=== PATIENT | female | born 2000 | race Two or more races ===

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

== ENCOUNTER 2020-06-09 09:29 | Emergency (ER) | payer BC, MEDICAID ==
[2020-06-09] MEDS ORDERED: ONDANSETRON HCL INJ/PF 4 MG/2 ML SDV IV ONE (10:19)
[2020-06-09] MEDS ORDERED: RINGERS SOLUTION,LACTATED 1,000 ML IV ONE (10:19)
--- NOTE | 2020-06-09 10:20 | ER Document Report ---
ED GI/ - General Chief Complaint: Abdominal Pain Stated Complaint: ABDOMINAL PAIN Time Seen by Provider: 06/09/20 10:04 Mode of Arrival: Ambulatory Information source: Patient Notes: 19-year-old female who states she is approximately 7 weeks presents to the emergency room complaining of nausea with vomiting abdominal pain that started last night. States she is been unable to keep anything down today. Has tried taking crackers and Sprite without relief. She is a 1. States she saw her OB last week had a normal ultrasound. She denies any fevers. No urinary symptoms. Denies any vaginal discharge. Denies any vaginal bleeding. Describes the pain as cramping in her lower abdomen. TRAVEL OUTSIDE OF THE [place] IN LAST 30 DAYS: No - Related Data Allergies/Adverse Reactions: No Known Allergies Allergy (Verified 05/03/19 07:27) Past Medical History - General Information source: Patient - Social History Smoking Status: Never Smoker Chew tobacco use (# tins/day): No Frequency of alcohol use: None Drug Abuse: None Family History: Reviewed & Not Pertinent Renal/ Medical History: Denies: Hx Peritoneal Dialysis - Immunizations Immunizations up to date: Yes Review of Systems - Review of Systems Constitutional: No symptoms reported Cardiovascular: No symptoms reported Respiratory: No symptoms reported Gastrointestinal: Abdominal pain, Nausea, Vomiting Female Genitourinary: . denies: Vaginal discharge, Vaginal bleeding Skin: No symptoms reported Neurological/Psychological: No symptoms reported -: Yes All other systems reviewed and negative Physical Exam - Vital signs Vitals: Temp Pulse Resp BP Pulse Ox 98.6 F 72 14 133/65 H 100 06/09/20 09:35 06/09/20 09:35 06/09/20 09:35 06/09/20 09:35 06/09/20 09:35 - General General appearance: Appears well, Alert In distress: Mild - HEENT Head: Normocephalic, Atraumatic Eyes: Normal Pupils: PERRL - Respiratory Respiratory status: No respiratory distress Chest status: Nontender Breath sounds: Normal Chest palpation: Normal - Cardiovascular Rhythm: Regular Heart sounds: Normal auscultation Murmur: No - Abdominal Inspection: Normal Distension: No distension Bowel sounds: Normal Tenderness: Nontender Organomegaly: No organomegaly. No: Hepatomegaly, Splenomegaly - Back Back: Normal, Nontender. No: CVA tenderness - Neurological Neuro grossly intact: Yes Cognition: Normal Orientation: AAOx4 [place] Coma Scale Eye Opening: Spontaneous [place] Coma Scale Verbal: Oriented [place] Coma Scale Motor: Obeys Commands Prem Coma Scale Total: 15 Speech: Normal Motor strength normal: LUE, RUE, LLE, RLE Sensory: Normal - Skin Skin Temperature: Warm Skin Moisture: Dry Skin Color: Normal Course - Re-evaluation Re-evalutation: 06/09/20 14:48 Patient is resting comfortably she is able to tolerate p.o. food and fluids without difficulty. She is pain-free on exam. Reviewed lab and ultrasound results with patient. Patient states that when she had ultrasound last week ultrasound showed a gestational sac and did not show anything else on the ultrasound. States they were unable to find a heartbeat. Patient was counseled on the importance of following up in 48 hours with her CAFETERIA AIDE for repeat ultrasound and repeat quant's. Counseled on the possibility of an ectopic versus a threatened miscarriage. Take Zofran as needed for the nausea. Can take Tylenol as needed for pain. Patient was given strict return to the emergency room guidelines. Return for any new or worsening symptoms. All questions were answered. Patient verbalized understanding and agrees with plan of care. 06/09/20 18:31 - Vital Signs Vital signs: Temp Pulse Resp BP Pulse Ox 98 F 69 18 110/69 99 06/09/20 15:43 06/09/20 15:43 06/09/20 15:43 06/09/20 15:43 06/09/20 15:43 - Laboratory Result Diagrams: 06/09/20 10:10 06/09/20 10:10 Laboratory results interpreted by me: 06/09/20 06/09/20 06/09/20 10:10 10:10 10:10 RDW 15.5 H Seg Neutrophils % 79.3 H Sodium 135.5 L BUN 6 L Beta HCG, Quant 25312.00 H Urine Protein 30 H Urine Ketones TRACE H Urine Blood SMALL H Urine Urobilinogen 2.0 H - Diagnostic Test Radiology reviewed: Reports reviewed Discharge - Discharge Clinical Impression: Threatened miscarriage Abdominal pain during Qualifiers: Trimester: first trimester Qualified Code(s): O26.891 - Other specified related conditions, first trimester Condition: Stable Disposition: HOME, SELF-CARE Instructions: Antinausea Medication ([facility]), Ectopic Precaution ([facility]), Threatened Miscarriage ([facility]) Additional Instructions: Take the Zofran as needed for nausea. Can take Tylenol as needed for pain. Follow-up with your CAFETERIA AIDE in 48 hours for repeat testing. Return to the emerg ency room for any new or worsening symptoms. Prescriptions: Ondansetron [Zofran Odt 4 mg Tablet] 1 tab PO Q4H PRN #15 tab.rapdis PRN Reason: For Nausea/Vomiting
[2020-06-09 10:43] LABS: ABSOLUTE LYMPHOCYTES (AUTO) 1.3 10^3/uL (0.5-4.7); ABSOLUTE MONOCYTES (AUTO) 0.6 10^3/uL (0.1-1.4); ABSOLUTE NEUT (AUTO) 7.3 10^3/uL (1.7-8.2); BASOPHILS % (AUTO) 0.5 % (0-2); EOSINOPHILS % (AUTO) 0.1 % (0-6); HEMATOCRIT 36.7 % (36.0-47.0); HEMOGLOBIN 12.9 g/dL (12.0-15.5); LYMPHOCYTES % (AUTO) 13.8 % (13-45); MEAN CORPUSCULAR HEMOGLOBIN 30.4 pg (27.0-33.4); MEAN CORPUSCULAR HGB CONC 35.1 g/dL (32.0-36.0); MEAN CORPUSCULAR VOLUME 87 fl (80-97); MONOCYTES % (AUTO) 6.3 % (3-13); PLATELET COUNT 323 10^3/uL (150-450); RED BLOOD COUNT 4.24 10^6/uL (3.72-5.28); RED CELL DISTRIBUTION WIDTH 15.5 % (11.5-14.0); SEGMENTED NEUTROPHILS % (AUTO) 79.3 % (42-78); TOTAL CELLS COUNTED % (AUTO) 100 %; WHITE BLOOD COUNT 9.3 10^3/uL (4.0-10.5)
[2020-06-09 10:51] LABS: APPEARANCE,URINE SLIGHTLY-CLOUDY; BILIRUBIN,URINE NEGATIVE (NEGATIVE); COLOR,URINE YELLOW; GLUCOSE, URINE NEGATIVE (NEGATIVE); KETONES,URINE TRACE mg/dL (NEGATIVE); LEUKOCYTE ESTERASE,URINE NEGATIVE (NEGATIVE); NITRITE,URINE NEGATIVE (NEGATIVE); PROTEIN,URINE 30 mg/dL (NEGATIVE); URINE SPECIFIC GRAVITY 1.029
[2020-06-09 11:02] LABS: ALBUMIN 4.3 g/dL (3.7-5.6); ALKALINE PHOSPHATASE 66 U/L (50-135); ANION GAP 5 (5-19); ASPARTATE AMINO TRANSFERASE 21 U/L (5-30); BILIRUBIN,TOTAL 0.5 mg/dL (0.2-1.3); BLOOD UREA NITROGEN 6 mg/dL (7-20); CALCIUM 9.6 mg/dL (8.4-10.2); CARBON DIOXIDE 24 mmol/L (22-30); CHLORIDE 107 mmol/L (98-107); GLUCOSE 100 mg/dL (75-110); POTASSIUM 4.3 mmol/L (3.6-5.0)
--- NOTE | 2020-06-09 14:04 | RADIOLOGY REPORT (SQ) ---
EXAM DESCRIPTION: U/S OB TRANSVAG W/DOPPLER IMAGES COMPLETED DATE/TIME: 06/09/2020 1:45 pm REASON FOR STUDY: abdominal pain COMPARISON: None. TECHNIQUE: Transvaginal static and realtime grayscale images acquired of the pelvis. Additional zander cted spectral and color Doppler images recorded. All images stored on PACs. [id number],116 CLINICAL DATES: 6 weeks 4 days. LIMITATIONS: None. FINDINGS: FETUS: No viable fetus on current study. ULTRASOUND EGA: 6 weeks 1 day. ULTRASOUND HARSHA: 02/01/2021 EFW: Not applicable less than 20 weeks. CRL: Not visualized. FHR: No heart activity. SUBCHORIONIC BLEED: None. SIZE OF BLEED: Not applicable. UTERUS: No masses. No anomalies. CERVICAL LENGTH: 2.1 cm. Closed. RIGHT ADNEXA: Normal ovary with normal vascular flow. No adnexal free fluid. No adnexal masses. LEFT ADNEXA: Normal ovary with normal vascular flow. No adnexal free fluid. No adnexal masses. FREE FLUID: None. OTHER: No other significant finding. IMPRESSION: Intrauterine gestational sac corresponding is 6 weeks 1 day. No heart activity. No pole. Follow-up beta HCG and ultrasound is recommended. Ectopic cannot be exclud ed at this point. Trimester of : First trimester - 0 to 13 weeks. TECHNICAL DOCUMENTATION: JOB ID: [id number] 2010 [employer]- All Rights Reserved rev-04/14 Reading location - IP/workstation name: [email or web address]
[2020-06-09 15:45] VITALS: BP 110/69
== END 2020-06-09 15:45 | disposition home or self-care (01) ==
LOC: ER 09:29
DX: O20.0 Threatened abortion (principal); O26.891 Other specified pregnancy related conditions, first trimester; R10.9 Unspecified abdominal pain; O21.9 Vomiting of pregnancy, unspecified; Z3A.01 Less than 8 weeks gestation of pregnancy
CPT/HCPCS: 99284; 96361; 96374; 36415; 84702; 83690; 85025; 80053; 81001; 76817; 93976; J2405; J7120

== ENCOUNTER 2020-06-16 08:44 | Emergency (ER) | payer BC, MEDICAID ==
--- NOTE | 2020-06-16 10:45 | ER Document Report ---
ED Medical Screen (RME) - General Chief Complaint: Nausea/Vomiting Stated Complaint: VAGINAL BLEEDING Time Seen by Provider: 06/16/20 10:39 Mode of Arrival: Ambulatory Information source: Patient Notes: HPI; 19-year-old female one 6-week female presents to the emergency room complaining of spotting that started last night. Patient was seen here last week ultrasound only showed a gestational sac. At that time she was having cramping but no bleeding. Is now bleeding she states the spotting started last night with cramping noted. Called her OB and was sent to the emergency room. PE: Alert and oriented x3. Mild distress noted. Lungs: Expiratory wheezes are noted. Without rhonchi or rales. Heart: Regular rate rhythm without murmurs, rubs, gallops. Able to do full exam in triage. I have greeted and performed a rapid initial assessment of this patient. A comprehensive ED assessment and evaluation of the patient, analysis of test results and completion of the medical decision making process will be conducted by additional ED providers. I have specifically instructed the patient or family members with the patient to immediately return to any nursing staff should anything change in the patient's condition or with their chief complaint. TRAVEL OUTSIDE OF THE [place] IN LAST 30 DAYS: No - Related Data Allergies/Adverse Reactions: No Known Allergies Allergy (Verified 05/03/19 07:27) Home Medications: . Promethazine Past Medical History Renal/ Medical History: Denies: Hx Peritoneal Dialysis - Immunizations Immunizations up to date: Yes Physical Exam - Vital signs Vitals: Temp Pulse Resp BP Pulse Ox 98.8 F 82 16 123/72 100 06/16/20 09:11 06/16/20 09:11 06/16/20 09:11 06/16/20 09:11 06/16/20 09:11 Course - Vital Signs Vital signs: Temp Pulse Resp BP Pulse Ox 98.8 F 82 16 123/72 100 06/16/20 09:11 06/16/20 09:11 06/16/20 09:11 06/16/20 09:11 06/16/20 09:11
[2020-06-16 11:06] LABS: HEMATOCRIT 37.2 % (36.0-47.0); HEMOGLOBIN 12.6 g/dL (12.0-15.5); MEAN CORPUSCULAR HEMOGLOBIN 29.6 pg (27.0-33.4); MEAN CORPUSCULAR HGB CONC 33.9 g/dL (32.0-36.0); MEAN CORPUSCULAR VOLUME 87 fl (80-97); PLATELET COUNT 347 10^3/uL (150-450); RED BLOOD COUNT 4.26 10^6/uL (3.72-5.28); RED CELL DISTRIBUTION WIDTH 15.6 % (11.5-14.0); WHITE BLOOD COUNT 9.3 10^3/uL (4.0-10.5)
--- NOTE | 2020-06-16 11:13 | RADIOLOGY REPORT (SQ) ---
EXAM DESCRIPTION: CHEST 2 VIEWS IMAGES COMPLETED DATE/TIME: 06/16/2020 11:04 am REASON FOR STUDY: wheezing COMPARISON: None. EXAM PARAMETERS: NUMBER OF VIEWS: two views TECHNIQUE: Digital Frontal and Lateral radiographic views of the chest acquired. RADIATION DOSE: NA LIMITATIONS: none FINDINGS: LUNGS AND PLEURA: No opacities, masses or pneumothorax. No pleural effusion. MEDIASTINUM AND HILAR STRUCTURES: No masses or contour abnormalities. HEART AND VASCULAR STRUCTURES: Heart normal size. No evidence for failure. BONES: No acute findings. HARDWARE: None in the chest. OTHER: No other significant finding. IMPRESSION: NO ACUTE RADIOGRAPHIC FINDING IN THE CHEST. TECHNICAL DOCUMENTATION: JOB ID: [id number] 2010 [employer]- All Rights Reserved Reading location - IP/workstation name: [email or web address]
[2020-06-16 11:35] LABS: ALBUMIN 4.4 g/dL (3.7-5.6); ALKALINE PHOSPHATASE 65 U/L (50-135); ANION GAP 8 (5-19); ASPARTATE AMINO TRANSFERASE 22 U/L (5-30); BILIRUBIN,TOTAL 0.3 mg/dL (0.2-1.3); BLOOD UREA NITROGEN 4 mg/dL (7-20); CALCIUM 9.3 mg/dL (8.4-10.2); CARBON DIOXIDE 25 mmol/L (22-30); CHLORIDE 104 mmol/L (98-107); GLUCOSE 81 mg/dL (75-110); POTASSIUM 4.3 mmol/L (3.6-5.0)
--- NOTE | 2020-06-16 12:38 | RADIOLOGY REPORT (SQ) ---
EXAM DESCRIPTION: U/S OB TRANSVAG W/DOPPLER IMAGES COMPLETED DATE/TIME: 06/16/2020 12:15 pm REASON FOR STUDY: vaginal bleeding COMPARISON: 06/09/2020 TECHNIQUE: Transvaginal static and realtime grayscale images acquired of the pelvis. Additional zander cted spectral and color Doppler images recorded. All images stored on PACs. bHCG: Not available. CLINICAL DATES: 7 weeks 4 days LIMITATIONS: None. FINDINGS: FETUS: Single Living intrauterine . ULTRASOUND EGA: 6 weeks 4 days ULTRASOUND HARSHA: 02/05/2021 EFW: Not applicable less than 20 weeks. CRL: 8 mm FHR: 125 beats per minute. SURVEY: No visualized anomalies. AMNIOTIC FLUID: Adequate amount. PLACENTA: Not yet developed due to early gestation. SUBCHORIONIC BLEED: No. SIZE OF BLEED: Not applicable. UTERUS: No masses. No anomalies. CERVICAL LENGTH: 2.9 cm Closed. RIGHT ADNEXA: Normal ovary with normal vascular flow. No adnexal free fluid. No adnexal masses. LEFT ADNEXA: Normal ovary with normal vascular flow. No adnexal free fluid. No adnexal masses. FREE FLUID: None. OTHER: No other significant finding. IMPRESSION: LIVING INTRAUTERINE . EGA 6 weeks 4 days Trimester of : First trimester - 0 to 13 weeks. TECHNICAL DOCUMENTATION: JOB ID: [id number] 2010 [employer]- All Rights Reserved rev Reading location - IP/workstation name: [email or web address]
--- NOTE | 2020-06-16 13:07 | ER Document Report ---
ED General - General Chief Complaint: Nausea/Vomiting Stated Complaint: VAGINAL BLEEDING Time Seen by Provider: 06/16/20 10:39 Mode of Arrival: Ambulatory Notes: 06/16/20 10:33 - ED Nursing Note by ZEENAT MCINTOSH [facility] Num: [id number] : 2000 Patient Age: 19 Patient ambulatory to ED with complaint of vaginal bleeding/spotting that she reports began last night. Patient reports bleeding is light, spotty and denies presence of clots. Patient reports she is currently approximately 7 weeks , . Patient reports morning sickness present, that improves throughout the day. Patient states she is able to tolerate po food/fluids. Patient reports no fever, chills, new or worsening respiratory symptoms or known exposure to COVID. Denies recent travel. Patient reports no significant medical/surgical hx. NKDA. Patient is AOx4 with even and unlabored respirations, speaking in clear and complete sentences, nad noted. Ambulatory with even and steady gait. Shane notes HPI; 19-year-old female one 6-week female presents to the emergency room complaining of spotting that started last night. Patient was seen here last week ultrasound only showed a gestational sac. At that time she was having cramping but no bleeding. Is now bleeding she states the spotting started last night with cramping noted. Called her OB and was sent to the emergency room. PE: Alert and oriented x3. Mild distress noted. Lungs: Expiratory wheezes are noted. Without rhonchi or rales. Heart: Regular rate rhythm without murmurs, rubs, gallops. Able to do full exam in triage. US with IUP 125 bpm 6 weeks 4 days CXR NAD my notes 19-year-old female arrives with chief complaint of vaginal bleeding and cramps that began around 01 100 this morning. She is never had this before. She is G1, P0. Her mother and father have had no problems in the fast in fact her mother and father have had 10 children and therefore the patient has 5 brothers and 5 sisters. Patient denies any cramps at this time her CBC is normal hCG is positive her electrolytes are normal her ultrasound as per above was IUP 6 weeks 4 days with 125 bpm. Patient is resting well at this time at 1315. Patient would like a CD disc of her ultrasound for Dr. Hsu her OB doctor. She had actually called Dr. Hsu and she was advised to come here to the ER. TRAVEL OUTSIDE OF THE [place] IN LAST 30 DAYS: No - Related Data Allergies/Adverse Reactions: No Known Allergies Allergy (Verified 05/03/19 07:27) Home Medications: . Promethazine Past Medical History - General Information source: Patient - Social History Smoking Status: Unknown if Ever Smoked Cigarette use (# per day): No Chew tobacco use (# tins/day): No Smoking Education Provided: No Frequency of alcohol use: None Drug Abuse: None Lives with: Family Family History: Reviewed & Not Pertinent Patient has suicidal ideation: No Patient has homicidal ideation: No Renal/ Medical History: Denies: Hx Peritoneal Dialysis - Immunizations Immunizations up to date: Yes Review of Systems - Review of Systems Constitutional: No symptoms reported EENT: No symptoms reported Cardiovascular: No symptoms reported Respiratory: No symptoms reported Gastrointestinal: No symptoms reported Genitourinary: No symptoms reported Female Genitourinary: , Vaginal bleeding Musculoskeletal: No symptoms reported Skin: No symptoms reported Hematologic/Lymphatic: No symptoms reported Neurological/Psychological: No symptoms reported Physical Exam - Vital signs Vitals: Temp Pulse Resp BP Pulse Ox 98.8 F 82 16 123/72 100 06/16/20 09:11 06/16/20 09:11 06/16/20 09:11 06/16/20 09:11 06/16/20 09:11 Interpretation: Normal - General General appearance: Appears well - HEENT Head: Normocephalic, Atraumatic Eyes: Normal Pupils: PERRL Nasal: Normal Mouth/Lips: Normal Mucous membranes: Normal Pharynx: Normal Neck: Normal - Respiratory Respiratory status: No respiratory distress Chest status: Nontender Breath sounds: Normal Chest palpation: Normal - Cardiovascular Rhythm: Regular Heart sounds: Normal auscultation Murmur: No - Abdominal Inspection: Normal Distension: No distension Bowel sounds: Normal Tenderness: Tender - suprapubic cramping - Rectal Hemorrhoids: Other - deferred - Genitourinary Bimanuel exam: Other - deferred - Back Back: Normal - Extremities General upper extremity: Normal inspection General lower extremity: Normal inspection - Neurological Neuro grossly intact: Yes Cognition: Normal Orientation: AAOx4 Ackworth Coma Scale Eye Opening: Spontaneous Prem Coma Scale Verbal: Oriented Prem Coma Scale Motor: Obeys Commands Prem Coma Scale Total: 15 Speech: Normal Motor strength normal: LUE, RUE, LLE, RLE Sensory: Normal - Psychological Associated symptoms: Normal affect - Skin Skin Temperature: Warm Skin Moisture: Dry Course - Vital Signs Vital signs: Temp Pulse Resp BP Pulse Ox 98.8 F 82 16 123/72 100 06/16/20 09:11 06/16/20 09:11 06/16/20 09:11 06/16/20 09:11 06/16/20 09:11 - Laboratory Result Diagrams: 06/16/20 10:45 06/16/20 10:45 Laboratory results interpreted by me: 06/16/20 06/16/20 06/16/20 10:45 10:45 10:45 RDW 15.6 H BUN 4 L Serum HCG, Qual POSITIVE H Discharge - Discharge Clinical Impression: Vaginal bleeding Abdominal pain during Qualifiers: Trimester: first trimester Qualified Code(s): O26.891 - Other specified related conditions, first trimester; R10.9 - Unspecified abdominal pain Condition: Good Disposition: HOME, SELF-CARE Additional Instructions: Follow-up with Dr. Hsu your OB doctor and off work as directed return to ER as needed; also advised vaginal rest no douches tub baths or sex until seen and ev aluated by Dr. Hsu Forms: Return to Work
[2020-06-16 14:28] VITALS: BP 118/74
== END 2020-06-16 14:28 | disposition home or self-care (01) ==
LOC: ER 08:44
DX: O46.91 Antepartum hemorrhage, unspecified, first trimester (principal); O26.891 Other specified pregnancy related conditions, first trimester; R10.9 Unspecified abdominal pain; O21.9 Vomiting of pregnancy, unspecified; Z3A.01 Less than 8 weeks gestation of pregnancy
CPT/HCPCS: 36415; 71046; 76817; 80053; 84703; 85027; 86900; 86901; 93976; 99284

== ENCOUNTER 2020-09-06 07:24 | Emergency (ER) | payer BC, MEDICAID ==
--- NOTE | 2020-09-06 08:19 | RADIOLOGY REPORT (SQ) ---
EXAM DESCRIPTION: KNEE RIGHT 4 VIEWS IMAGES COMPLETED DATE/TIME: 09/06/2020 8:00 am REASON FOR STUDY: pain with ambulation COMPARISON: None. NUMBER OF VIEWS: Four views. TECHNIQUE: AP, lateral, and both oblique radiographic images acquired of the right knee. LIMITATIONS: None. FINDINGS: MINERALIZATION: Normal. BONES: No acute fracture or dislocation. No worrisome bone lesions. JOINT: No effusion. SOFT TISSUES: No soft tissue swelling. No radio-opaque foreign body. OTHER: No other significant finding. IMPRESSION: NEGATIVE STUDY OF THE RIGHT KNEE. NO RADIOGRAPHIC EVIDENCE OF ACUTE INJURY. TECHNICAL DOCUMENTATION: JOB ID: [id number] 2010 [employer]- All Rights Reserved Reading location - IP/workstation name: [email or web address]
[2020-09-06] MEDS ORDERED: LORAZEPAM 1 MG TABLET PO ONE (08:25)
[2020-09-06] MEDS ORDERED: KETOROLAC TROMETHAMINE INJ/PF 30 MG/1 ML SDV IV ONE (08:25)
[2020-09-06] MEDS ORDERED: MORPHINE SULFATE 10 MG/ML INJ IV ONE (08:26)
[2020-09-06] MEDS ORDERED: HYDROMORPHONE HCL INJ/PF 2 MG/ML AMPULE IV ONE (09:52)
--- NOTE | 2020-09-06 10:02 | ER Document Report ---
ED Extremity Problem, Lower - General Chief Complaint: Knee Pain Stated Complaint: KNEE PAIN Time Seen by Provider: 09/06/20 07:57 Notes: This 19-year-old female presents to the emergency department with a complaint of right knee pain. Apparently she rolled over in the bed had a sudden pain in her right knee which has caused severe pain. States that she is unable to straighten the knee and she has a 10/10 pain involving the lateral and posterior knee. Denies a history of a prior knee problem, denies activities which might have precipitated an injury other than rolling over on the bed. TRAVEL OUTSIDE OF THE [place] IN LAST 30 DAYS: No - Related Data Allergies/Adverse Reactions: No Known Allergies Allergy (Verified 05/03/19 07:27) Past Medical History - Social History Smoking Status: Never Smoker Family History: Reviewed & Not Pertinent Renal/ Medical History: Denies: Hx Peritoneal Dialysis - Immunizations Immunizations up to date: Yes Review of Systems - Review of Systems Notes: Constitutional: Negative for fever. HENT: Negative for sore throat. Eyes: Negative for visual changes. Cardiovascular: Negative for chest pain. Respiratory: Negative for shortness of breath. Gastrointestinal: Negative for abdominal pain, vomiting or diarrhea. Genitourinary: Negative for dysuria. Musculoskeletal: Negative for back pain. Skin: Negative for rash. Neurological: Negative for headaches, weakness or numbness. 10 point ROS negative except as marked above and in HPI. Physical Exam - Vital signs Vitals: Temp Pulse Resp BP Pulse Ox 98.4 F 87 16 138/75 H 100 09/06/20 07:27 09/06/20 07:27 09/06/20 07:27 09/06/20 07:27 09/06/20 07:27 - Notes Notes: PHYSICAL EXAMINATION: Physical Exam: General: Well-nourished well-developed in no acute distress HEENT: NC/AT, pupils equal round and reactive to light, MM moist,nares clear, oropharynx clear, airway patent Neck: supple, no adenopathy, no masses. Good range of motion Lungs: clear, no wheezing, no rales no rhonchi CVS: Regular rate and rhythm no murmur gallop or rub Abdomen: Soft, active, nontender, no masses, no hepatosplenomegaly Ext: Right knee held in the flexed position, + tenderness with palpation and posterior lateral aspect of the knee. There is also tenderness noted on palpating the lateral aspect of the knee along the joint line. No obvious swelling, no bruising. Neuro: Alert and responsive, moving all 4 extremities on command, cranial nerves intact, no focal findings Skin: Intact no open lesions, no rash PSYCH: Normal mood, normal affect. Course - Re-evaluation Re-evalutation: 09/06/20 09:58 The x-ray of the knee is read as negative. After receiving pain medications, the patient is able to extend leg however complains of pain with extension and flexing the knee. There is no lower extremity pain or swelling. - Vital Signs Vital signs: Temp Pulse Resp BP Pulse Ox 98.4 F 87 16 138/75 H 100 09/06/20 07:27 09/06/20 07:27 09/06/20 07:27 09/06/20 07:27 09/06/20 07:27 - Diagnostic Test Radiology reviewed: Image reviewed, Reports reviewed Radiology results interpreted by me: 09/06/20 09:59 X-ray left knee: No fracture, no dislocation. Discharge - Discharge Clinical Impression: Derangement of right knee ligament Condition: Good Disposition: HOME, SELF-CARE Instructions: Use of Crutches ([facility]), Ice & Elevation ([facility]), Knee Immobilizing Splint ([facility]) Additional Instructions: You are seen in the emergency department today with right knee pain and diffi culty moving your right leg secondary to an injury sustained while turning over in the bed. This injury may represent a ligamentous injury. You are placed in a knee immobilizer and given crutches. Please wear the immobilizer use the crutches during the next 24 hours. If you are unable to bear weight or if you are having continued difficulties on Tuesday please contact the orthopedist for a recheck of the knee. Due to your , you may use Tylenol for pain and apply ice to the area. These avoid ibuprofen or [id number]-[id number] anti-inflammatory medications. Followup orthopedics Dr. Adam Pérez, , call on Tuesday for appointment if needed. HOME CARE INSTRUCTIONS & INFORMATION: Thank you for choosing us for your medical needs. We hope you're satisfied with the care you received. After you leave, you must properly care for your problem and, at the same time, observe its progress. Any condition can change. Some illnesses can change rapidly over hours or days. If your condition worsens, return to the Emergency Department or see your physician promptly. ABOUT YOUR X-RAYS AND EKG'S: If you had an EKG or X-rays taken, they have been read by the Emergency Physician. The X-rays and EKG's will also be read by a Radiologist or [employer] within 24 hours. If discrepancies are noted, you will be notified by telephone. Please be certain the ED has a correct telephone number & address where you can be reached. Also, realize that some fractures or abnormalities do not show up on initial X-rays. If your symptoms continue, see your physician. ABOUT YOUR LABORATORY TEST: If you had laboratory tests, the results have been reviewed by the Emergency Physician. Some test results (for example cultures) may not be available for several days. You will be contacted if any test result shows you need additional treatment. Please be certain the ED has a correct telephone number and address where you can be reached. ABOUT YOUR MEDICATIONS: You will receive instructions on how to take your medicine on the prescription label you receive. Additional information may be provided by the Pharmacy. If you have questions afterwards, call the ED for clarification or further instructions. Some prescribed medications may cause drowsiness. Do not perform tasks such as driving a car or operating machinery without consulting your Pharmacist. If you feel you need a refill of pain medication, your condition will need re-evaluation. Please do not call for a refill of any medication. ABOUT YOUR SIGNATURE: Signature of this document acknowledges to followin. Understanding that you received emergency treatment and that you may be released before al medical problems are known or treated. Please be certain the ED has a correct phone number & address where you can be reached. 2. Acknowledgement that you will arrange for follow-up care as recommended. 3. Authorization for the Emergency Physician to provide information to your follow-up Physician in order to maximize your care. AT ANY TIME, IF YOUR SYMPTOMS CHANGE SIGNIFICANTLY OR WORSEN OR YOU DEVELOP NEW SYMPTOMS, RETURN TO THE EMERGENCY DEPARTMENT IMMEDIATELY FOR RE-EVALUATION. OUR GOAL IS TO PROVIDE EXCELLENT MEDICAL CARE! WE HOPE THAT WE HAVE MET YOUR EXPECTATIONS DURING YOUR EMERGENCY DEPARTMENT VISIT AND THAT YOU FEEL YOU HAVE RECEIVED EXCELLENT CARE!
[2020-09-06 10:42] VITALS: BP 110/70
== END 2020-09-06 10:10 | disposition home or self-care (01) ==
LOC: ER 07:24
DX: M23.91 Unspecified internal derangement of right knee (principal); M25.561 Pain in right knee
CPT/HCPCS: 99284; 96374; 96375; 73564; J1885; J2270